=== PATIENT | male | born 1985 | race Caucasian/White ===

== ENCOUNTER → 2023-05-19 07:39 | Outpatient (CLI) | payer OTHER, SELFPAY ==
--- NOTE | 2023-05-19 | DI.MRI.S_ITS ---
PROCEDURE: MR SHOULDER LT WO CON INDICATIONS: PAIN IN LEFT SHOULDER TECHNIQUE: Noncontrast oblique coronal T2 fast spin echo with fat saturation, oblique sagittal T1 spin echo and T2 fast spin echo with fat saturation, axial T1 spin echo and T2 fast spin echo with fat saturation through the shoulder. COMPARISON: None. FINDINGS: Image quality: Excellent. Rotator cuff: Mild supraspinatus and infraspinatus tendinosis with low-grade bursal surface fraying. The teres minor tendon is intact. There is mild subscapularis tendinosis. No significant rotator cuff muscle atrophy is seen. Bones and bursae: No acute trabecular bone injury or fracture. Mild osseous edema is seen in the distal clavicle and there is mild surrounding soft tissue edema. The acromioclavicular joint is normally aligned. The coracoclavicular ligament is intact. High-grade versus full-thickness cartilage loss is seen at the superior medial humeral head and the adjacent posterior glenoid. Small amount of fluid is seen in the subacromial/subdeltoid bursa. Small glenohumeral effusion. No intra-articular loose body is identified. Capsule and soft tissues: There is nearly circumferential nondisplaced labral tearing. Proximal biceps long head tendon demonstrates mild tendinosis. The glenohumeral ligaments appear to be intact. IMPRESSION: 1. Mild trabecular bone injury at the distal clavicle with surrounding soft tissue edema. Findings may be related to a mild acromioclavicular separation injury versus chronic repetitive trauma or distal clavicular osteolysis. The acromioclavicular joint is normally aligned and the coracoclavicular ligament is intact. 2. Grade 3-4 cartilage loss is seen at the superomedial humeral head and the posterior glenoid. 3. Nearly circumferential nondisplaced labral tearing. 4. Mild proximal biceps long head tendinosis. 5. Mild diffuse rotator cuff tendinosis involving the supraspinatus, infraspinatus, and subscapularis tendons. There is mild bursal surface fraying of the distal supraspinatus tendon without a significant rotator cuff tendon tear. 6. Small glenohumeral effusion. Small subacromial/subdeltoid bursal effusion or mild bursitis. Approved by: Ebenezer Lane M.D. on 05/19/2023 at 9:35
== END ==
PROVIDERS: PCP Physician Assistant; Referring Provider Physician Assistant; Visit Provider Physician Assistant
DX: S49.82XA Other specified injuries of left shoulder and upper arm, initial encounter (principal); S43.492A Other sprain of left shoulder joint, initial encounter; M25.512 Pain in left shoulder; M25.412 Effusion, left shoulder
CPT/HCPCS: 73221

== ENCOUNTER → 2023-07-21 11:49 | Outpatient (CLI) | payer OTHER, SELFPAY ==
--- NOTE | 2023-07-21 | DI.MRI.S_ITS ---
PROCEDURE: MR SHOULDER RT WO CON INDICATIONS: PAIN IN RIGHT SHOULDER TECHNIQUE: Noncontrast oblique coronal T2 fast spin echo with fat saturation, oblique sagittal T1 spin echo and T2 fast spin echo with fat saturation, axial T1 spin echo and T2 fast spin echo with fat saturation through the shoulder. COMPARISON: [facility], MR, MR SHOULDER LT WO CON, 05/19/2023, 8:09. FINDINGS: Image quality: Excellent. Rotator cuff: Low-grade articular and bursal surface partial thickness tear involving distal supraspinatus at its insertion on the humeral head is seen extending to musculotendinous junction. Distal infraspinatus and subscapularis tendinosis is seen. No full-thickness rotator cuff tendon rupture. Sagittal images demonstrate no significant rotator cuff muscle atrophy. Bones and bursae: No bone marrow contusions or fractures. Mild acromioclavicular joint osteoarthritic changes are noted with joint space narrowing and small downward osteophyte formation depressing the musculotendinous junction of supraspinatus. The acromion demonstrates conventional anatomy, without an os acromiale. There is small amount of joint effusion and subacromial subdeltoid bursal fluid. Possible tiny loose bodies involving inferior and posterior aspect of glenohumeral joint measures up to 3 mm in size is seen series 8, image 10. Capsule and soft tissues: Subtle signal abnormality and fraying of superior anterior labrum at 1 to 2 o'clock position is seen concerning for superior anterior labral tear. The long head of the biceps tendon demonstrates normal location and morphology. The rotator interval appears normal, without fibrosis. The coracohumeral ligament is normal in thickness. IMPRESSION: 1. Low-grade articular and bursal surface partial thickness tear involving distal supraspinatus extending to musculotendinous junction. Distal infraspinatus and subscapularis tendinosis. No full-thickness rotator cuff tendon rupture. 2. Mild acromioclavicular joint osteoarthritis. No fracture or dislocation. Small to moderate amount of joint effusion and subacromial subdeltoid bursal fluid with tiny loose bodies measures up to 3 mm in size as above. 3. Suggestion of subtle superior anterior labral tear at 1 to 2 o'clock position. Dictated by: Eduard Mullen M.D. on 07/21/2023 at 14:25 Approved by: Eduard Mullen M.D. on 07/21/2023 at 14:54
== END ==
PROVIDERS: PCP Physician Assistant; Referring Provider Nurse Practitioner Family; Visit Provider Nurse Practitioner Family
DX: M75.111 Incomplete rotator cuff tear or rupture of right shoulder, not specified as traumatic (principal); M19.011 Primary osteoarthritis, right shoulder; M25.411 Effusion, right shoulder; M25.511 Pain in right shoulder
CPT/HCPCS: 73221